=== PATIENT | female | born 1935 | race Caucasian/White ===

== ENCOUNTER → 2018-08-04 15:51 | Outpatient (CLI) | payer MEDICARE, OTHER ==
[2011-03-26 07:23] VITALS: BMI 29.7
== END | disposition home or self-care (01) ==
LOC: D.US 15:51
DX: R60.0 Localized edema (principal); M79.661 Pain in right lower leg

== ENCOUNTER → 2018-08-19 10:43 | Outpatient (CLI) | payer MEDICARE, OTHER ==
[2011-03-26 07:23] VITALS: BMI 29.7
== END | disposition home or self-care (01) ==
LOC: D.LAB 10:43
PROVIDERS: Family Medicine
DX: R19.7 Diarrhea, unspecified (principal)

== ENCOUNTER → 2018-10-07 08:40 | Outpatient (CLI) | payer MEDICARE, BC ==
[2011-03-26 07:23] VITALS: BMI 29.7
== END | disposition home or self-care (01) ==
LOC: D.RAD 10-01 08:30
DX: K92.1 Melena (principal); R19.4 Change in bowel habit

== ENCOUNTER → 2018-10-23 10:58 | Outpatient (CLI) | payer MEDICARE, BC ==
[2011-03-26 07:23] VITALS: BMI 29.7
== END | disposition home or self-care (01) ==
LOC: D.MRI 10:58
DX: G31.84 Mild cognitive impairment of uncertain or unknown etiology (principal)

== ENCOUNTER → 2019-04-14 13:16 | Outpatient (CLI) | payer MEDICARE, BC ==
[2011-03-26 07:23] VITALS: BMI 29.7
--- NOTE | ~2019-04-14 | EC ---
PATIENT:OTILIO FRENCH DATE OF SERVICE: 04/14/19 SEX: F MEDICAL RECORD: [id number] DATE OF : 31 LOCATION:[facility] AGE OF PATIENT: 83 ADMISSION DATE: 04/14/19 REFERRING PHYSICIAN: INTERPRETING PHYSICIAN: KOFI ALLEN MD ECHOCARDIOGRAM REPORT ECHO CHARGES 4 ECHO COMPLETE Date: 04/14/19 CLINICAL DIAGNOSIS: MR ECHOCARDIOGRAPHIC MEASUREMENTS (adult normal given) AC root (d.<3.7cm) 3.2 cm LV Septum d (<1.2 cm> 1.0 cm Valve Excursion 1.7 cm LV Septum (systole) 1.7 cm Left Atria (s.<4.0cm> 3.6 cm LVPW d(<1.2cm) 1.1 cm RV (d.<2.3cm) 3.6 cm LVPW (sytole) 1.8 cm LV diastole(<5.6CM) 5.5 cm MV E-F(>70mm/sec) cm LV systole 2.7 cm LVOT Diameter 1.7 cm MV exc.(>10mm) cm Est.ejection fraction (50-75%) % DOPPLER: LVIT cm/sec A 93.0 cm/sec E 61.0 cm/sec LA cm/sec RVSP 46.0 mmHg LVOT 124 cm/sec AOP1/2T m/s Asc. Ao 145 cm/sec RVOT 52.0 cm/sec RA cm/sec PA 87.0 cm/sec AV Gradient Peak 8.4 mmHg AV Mean 4.6 mmHg AV Area 1.9 cm MV Gradient Peak 6.2 mmHg MV Mean 1.7 mmHg MV Area cm COMMENTS: OP - HC Director Hris: Jamison COCHRANOE Jewelry Appraiser: 1 Dr. Allen TAPE# PACS Pericardial Effusion N DATE OF SERVICE: 04/14/2019 FINDINGS: 1. Left ventricular chamber size is within normal limits. Left ventricular systolic function is normal. Overall ejection fraction is estimated at 55%. 2. Left atrium is within normal limits at 3.6 cm. Right atrium and right ventricular chamber sizes are mildly dilated. 3. Valvular structures have normal structure and motion. 4. Doppler interrogation reveals trace mitral regurgitation and moderate tricuspid regurgitation. No other valvular insufficiency or stenosis. ECHOCARDIOGRAM REPORT [id number] OTILIO FRENCH Pulmonary systolic pressure is estimated at 46 mmHg. 5. No evidence of pericardial effusion or left ventricular thrombus. TRANSINT:[id number] Voice Confirmation ID: [id number] DOCUMENT ID: [id number] KOFI ALLEN MD CC: [id number] DICTATION DATE: 04/14/19 145 COGNOS: 04/14/19 1550 [facility] [address] [place] [address]
== END | disposition home or self-care (01) ==
LOC: D.HCCARDIO 13:16
PROVIDERS: ATTEND Internal Medicine Interventional Cardiology
DX: I34.0 Nonrheumatic mitral (valve) insufficiency (principal)

== ENCOUNTER → 2019-06-17 08:38 | Outpatient (CLI) | payer MEDICARE, BC ==
[2011-03-26 07:23] VITALS: BMI 29.7
== END | disposition home or self-care (01) ==
LOC: D.RAD 08:38
PROVIDERS: ATTEND Internal Medicine Gastroenterology
DX: R13.10 Dysphagia, unspecified (principal); R63.4 Abnormal weight loss

== ENCOUNTER → 2019-07-06 09:57 | Outpatient (CLI) | payer MEDICARE, BC ==
[2011-03-26 07:23] VITALS: BMI 29.7
--- NOTE | 2019-07-14 14:07 | ST ---
PATIENT:OTILIO FRENCH MEDICAL RECORD: [id number] SEX: F LOCATION:[facility] ORDER #: ADMISSION DATE: 07/06/19 AGE OF PATIENT: 83 REFERRING PHYSICIAN: INTERPRETING PHYSICIAN: KOFI DALTON MD DATE OF SERVICE: 07/06/2019 PROCEDURE: Nuclear stress test. INDICATION: Angina, palpitations, shortness of breath. TECHNIQUE: She was exercised on standard Lexiscan protocol with 33 mCi of sestamibi injected. At peak stress, 11 mCi used previously for rest images. FINDINGS: Gated SPECT reveals preserved ejection fraction at 75% with good wall motion and thickening and brightening throughout all segments. SPECT imaging Cardiolite was used as myocardial fusion agent. There is homogeneous uptake throughout all segments at rest and stress with no evidence of inducible ischemia or previous infarction. OVERALL IMPRESSION: 1. This is a normal nuclear stress test with no evidence of inducible ischemia or previous infarction. 2. Gated SPECT reveals a preserved ejection fraction at 75%. In this patient with ongoing symptomatology, the current scan does not suggest the presence of hemodynamically significant coronary artery disease. Evaluate noncardiac etiology of chest pain. TRANSINT:[id number] Voice Confirmation ID: [id number] DOCUMENT ID: [id number] KOFI DALTON MD at 1407 CC: JUANITA VIGIL [id number] DICTATION DATE: 07/07/19 1118 DUST COLLECTOR ATTENDANT: 07/07/19 1145 DEP CLI 07/06/19 [place] [id number] [place] [id number]
== END | disposition home or self-care (01) ==
LOC: D.HCCARDIO 09:57
PROVIDERS: ATTEND Internal Medicine Interventional Cardiology
DX: R00.2 Palpitations (principal)

== ENCOUNTER → 2019-08-18 09:33 | Outpatient (CLI) | payer MEDICARE, BC ==
[2011-03-26 07:23] VITALS: BMI 29.7
== END | disposition home or self-care (01) ==
LOC: D.US 09:33
PROVIDERS: ATTEND Family Medicine
DX: R22.1 Localized swelling, mass and lump, neck (principal)